=== PATIENT | female | born 1990 | race Caucasian/White ===

== ENCOUNTER 2025-01-19 18:31 | Emergency (ER) | payer OTHER ==
[~2025-01-19] VITALS: Ht 167.6 cm; Wt 70.3 kg
[2025-01-19] MEDS ORDERED: ONDANSETRON ODT 4 MG TAB.RAPDIS ONE (19:32)
[2025-01-19] MEDS ORDERED: HYDROCODONE/APAP 5-325MG TABLET ONE (19:32)
[2025-01-19] MEDS: HYDROCODONE/APAP 5-325MG TABLET PO ONE (19:34)
[2025-01-19] MEDS: ONDANSETRON ODT 4 MG TAB.RAPDIS SL ONE (19:34)
[2025-01-19] MEDS ORDERED: HYDR-4209 PO (20:43)
[2025-01-19] MEDS ORDERED: ONDA4TAB11 PO (20:43)
[2025-01-19 20:45] VITALS: BP 102/71; O2SAT 98
== END 2025-01-19 20:47 | disposition home or self-care (01) ==
LOC: ER 20:13
DX: S62.637A Displaced fracture of distal phalanx of left little finger, initial encounter for closed fracture (principal); Z88.7 Allergy status to serum and vaccine; W23.0XXA Caught, crushed, jammed, or pinched between moving objects, initial encounter; Y93.89 Activity, other specified; Y92.89 Other specified places as the place of occurrence of the external cause; Y99.8 Other external cause status
CPT/HCPCS: 73140; A4606; A4663; Q0162